=== PATIENT | male | born 1960 | race Caucasian/White ===

== ENCOUNTER 2019-03-21 10:28 | Day surgery (SDC) | payer OTHER ==
[2019-03-21] MEDS ORDERED: PROPOFOL 60 ML (11:13)
[2019-03-21] MEDS ORDERED: LIDOCAINE 2% (SDV) 5 ML INJ (11:13)
== END 2019-03-21 14:21 | disposition home or self-care (01) ==
LOC: GIL 10:28
DX: K29.50 Unspecified chronic gastritis without bleeding (principal); B96.89 Other specified bacterial agents as the cause of diseases classified elsewhere; K64.8 Other hemorrhoids; K21.9 Gastro-esophageal reflux disease without esophagitis; K44.9 Diaphragmatic hernia without obstruction or gangrene; R19.5 Other fecal abnormalities
CPT/HCPCS: 43239; 88305; 88312